=== PATIENT | male | born 1960 | race Caucasian/White ===

== ENCOUNTER 2022-08-29 09:08 | Emergency (ER) | payer OTHER, SELFPAY ==
[2022-08-29] VITALS (14 sets, daily range): BP systolic 108–135; BP diastolic 71–94; PULSE 67–140; RESP 15–24; TEMP 36.1; O2SAT 97–100; BMI 24.7
--- NOTE | 2022-08-29 09:21 | DI.RAD.S_ITS ---
PROCEDURE: XR CHEST 1V INDICATIONS: chest pain TECHNIQUE: One view of the chest was acquired. COMPARISON: None. FINDINGS: Surgical changes and devices: None. Lungs and pleura: Lungs are clear. No pleural effusions or pneumothorax. Mediastinum: Mediastinal contours appear normal. Heart size is normal. Bones and chest wall: No suspicious bony lesions. Overlying soft tissues appear unremarkable. IMPRESSION: No acute cardiopulmonary process. Dictated by: Iván Mccord M.D. on 08/29/2022 at 9:46 Approved by: Iván Mccord M.D. on 08/29/2022 at 9:46
[2022-08-29 09:46] LABS: Prothrombin Time 11.3 SECONDS (10.1-12.7)
[2022-08-29 09:49] LABS: PTT Partial Thromboplastin Tim 32 SECONDS (26-36)
[2022-08-29 09:52] LABS: Alanine Aminotransferase 26 IU/L (<50); Albumin 4.9 g/dL (3.5-5.0); Albumin Globulin Ratio 1.3 (1.0-2.8); Alkaline Phosphatase 64 U/L (38-126); Aspartate Aminotransferase 33 IU/L (17-59); BUN Creatinine Ratio 20.5 (6-22); Bilirubin Total 1.3 mg/dL (0.2-1.3); Blood Urea Nitrogen 17 mg/dL (9-20); Calcium 9.3 mg/dL (8.4-10.2); Carbon Dioxide 29 mmol/L (22-32); Chloride 102 mmol/L (98-107); Creatine Kinase 135 U/L (55-170); Estimated Glomerular Filt Rate > 60 mL/min (>60); Globulin 3.7 g/dL (1.7-4.1); Glucose 106 mg/dL (80-110); HEMOLYSIS 24 (0-50); Lipase 154 U/L (23-300); Magnesium 2.1 mg/dL (1.6-2.3); Potassium 4.3 mmol/L (3.4-5.1); Sodium 138 mmol/L (137-145); Total Protein 8.6 g/dL (6.3-8.2)
--- NOTE | 2022-08-29 09:56 | ED_ITS ---
HPI - Arrhythmia/Palpitations General Chief Complaint: Arrhythmia/Palpitations Stated Complaint: tachycardia, Dr sent Time Seen by Provider: 08/29/22 09:36 Source: patient Mode of arrival: Ambulatory Limitations: no limitations History of Present Illness HPI narrative: Patient is a 62-year-old male. Has a history of atrial fibrillation. Had an ablation done about 9 years ago. Has never had any issues since then. He states that on Sunday morning he started to feel like his heart was beating fast. He did have some exercise intolerance but no chest pain or shortness of breath. No lightheadedness. He stated that he contacted his primary doctor who told him to come to the emergency department. He is not currently on any beta- melissa nor anticoagulation. Related Data Previous Rx's Medication Instructions Recorded metoprolol succinate 25 mg 25 mg PO DAILY #30 tabs 08/29/22 tablet,extended release 24 hr rivaroxaban 20 mg tablet (Xarelto) 20 mg PO QPM #30 tabs 08/29/22 Allergies Allergy/AdvReac Type Severity Reaction Status Date / Time No Known Drug Allergies Allergy Verified 08/29/22 09:21 Review of Systems Review of Systems ROS Unobtainable: All systems reviewed & are unremarkable except as noted in HPI and below Patient History Medical History Atrial fibrillation Social History Smoking Status: Unknown if ever smoked Smoking Status: Unknown if ever smoked alcohol intake frequency: holidays/special occasions only Substance Use Type: does not use Exam Initial Vital Signs Initial Vital Signs: Vital Signs Temperature 97.0 F L 08/29/22 09:16 Pulse Rate 137 H 08/29/22 09:16 Respiratory Rate 17 08/29/22 09:16 Blood Pressure 127/94 H 08/29/22 09:16 Pulse Oximetry 98 08/29/22 09:16 Oxygen Delivery Method Room Air 08/29/22 09:16 Const General: cooperative, comfortable and No ill appearing [facility] Head: normal to inspection and normocephalic Resp Effort & Inspection: normal respiratory effort Auscultation: clear to auscultation bilaterally Cardio Rate: tachycardic Rhythm: regular rhythm GI Inspection: normal to inspection Skin General: no rashes or lesions noted Neuro General: patient alert, patient awake and moves all extremities Extrem General: capillary refill normal Course Orders Ordered: ED Orders 08/29/22 09:21 XR chest 1V Stat 08/29/22 09:25 Complete Blood Count AUTO DIFF Stat Comprehensive Metabolic Panel Stat Lipase Stat Magnesium Stat PTT Partial Thromboplastin [place] Stat Prothrombin Time INR Stat Troponin & CK Cardiac Panel Stat 08/29/22 09:34 EKG-12 Lead Stat 08/29/22 10:58 EKG-12 Lead Routine Discontinued Medications Aspirin (Aspirin 81 Mg Chew Tab) 324 mg PO NOW ONE Stop: 08/29/22 09:22 Last Admin: 08/29/22 12:13 Dose: Not Given Documented By: ANTHONY Diltiazem HCl (Diltiazem 5 Mg/Ml Sdv) 10 mg IV NOW ONE Stop: 08/29/22 10:29 Last Admin: 08/29/22 10:35 Dose: 10 mg Documented By: ANTHONY DILTIAZEM (Diltiazem 125 Mg/125 Ml-D5w) 125 mg in 125 mls @ 5 mls/hr IV TITRATE SIERRA; Protocol Last Titration: 08/29/22 12:13 Dose: 0 mg/hr, 0 mls/hr Documented By: Titration: 08/29/22 11:26 Dose: 0 mg/hr, 0 mls/hr Documented By: Admin: 08/29/22 10:36 Dose: 5 mg/hr, 5 mls/hr Documented By: ANTHONY Metoprolol Succinate (Metoprolol Er 25 Mg Tablet) 25 mg PO NOW ONE Stop: 08/29/22 11:03 Last Admin: 08/29/22 11:06 Dose: 25 mg Documented By: ANTHONY Vital Signs Vital signs: Vital Signs - 8 hr 08/29/22 11:06 08/29/22 10:00 08/29/22 10:00 Pulse Rate 68 134 H Respiratory Rate 23 Blood Pressure 108/75 127/92 H Pulse Oximetry 97 08/29/22 10:30 08/29/22 10:30 08/29/22 10:36 Pulse Rate 135 H Respiratory Rate 20 Blood Pressure 135/79 133/84 Pulse Oximetry 98 08/29/22 10:36 08/29/22 10:47 08/29/22 10:47 Pulse Rate 135 H 88 Respiratory Rate 15 21 Blood Pressure 115/77 Pulse Oximetry 98 98 08/29/22 11:00 08/29/22 11:00 08/29/22 11:25 Pulse Rate 71 Respiratory Rate 20 Blood Pressure 108/75 114/76 Pulse Oximetry 98 08/29/22 11:25 08/29/22 11:30 08/29/22 11:30 Pulse Rate 71 82 Respiratory Rate 21 17 Blood Pressure 118/71 Pulse Oximetry 98 98 08/29/22 11:52 08/29/22 11:52 08/29/22 12:00 Pulse Rate 68 Respiratory Rate 20 Blood Pressure 109/72 110/76 Pulse Oximetry 98 08/29/22 12:00 08/29/22 12:09 Pulse Rate 67 67 Respiratory Rate 20 Blood Pressure 110/76 Pulse Oximetry 98 MDM - Arrhythmia/Palpitations Lab Data Attestation: I reviewed the patient's lab results. 08/29/22 09:25 08/29/22 09:25 Labs: Lab Results 08/29/22 08/29/22 08/29/22 Range/Units 09:25 09:25 09:25 WBC 4.5 (4.5-11.0) X10^3/uL RBC 5.38 (4.5-5.9) X10^6/uL Hgb 16.5 (13.5-17.5) g/dL Hct 48.3 (41-53) % MCV 89.7 (80-100) fL MCH 30.8 (26-34) PG MCHC 34.3 (30-36) % RDW 13.6 (11.6-14.8) % Plt Count 180 (150-400) X10^3/uL Neut % (Auto) 56.6 (50-75) % Lymph % (Auto) 30.4 (25-40) % [place] % (Auto) 9.7 (3-14) % Eos % (Auto) 2.3 (2-4) % Baso % (Auto) 1.0 (0-2) % Neut # (Auto) 2600 (3130-7619) /uL Lymph # (Auto) 1400 (8745-0342) /uL [place] # (Auto) 400 (0-900) /uL Eos # (Auto) 100 (0-450) /uL Baso # (Auto) 0 (0-100) /uL PT 11.3 (10.1-12.7) SECONDS INR 1.0 (0.9-1.3) APTT 32 (26-36) SECONDS Sodium 138 (137-145) mmol/L Potassium 4.3 (3.4-5.1) mmol/L Chloride 102 (98-107) mmol/L Carbon Dioxide 29 (22-32) mmol/L BUN 17 (9-20) mg/dL Creatinine 0.83 (0.66-1.25) mg/dL Estimated GFR > 60 (>60) mL/min BUN/Creatinine Ratio 20.5 (6-22) Glucose 106 (80-110) mg/dL Calcium 9.3 (8.4-10.2) mg/dL Magnesium 2.1 (1.6-2.3) mg/dL Total Bilirubin 1.3 (0.2-1.3) mg/dL AST 33 (17-59) IU/L ALT 26 (<50) IU/L Alkaline Phosphatase 64 (38-126) U/L Total Creatine Kinase 135 (55-170) U/L CK-MB (CK-2) 2.15 (<2.37) ng/mL CK-MB (CK-2) Rel Index 1.6 (1.5-5.0) % Troponin I < 0.012 (0.01-0.034) ng/mL Total Protein 8.6 H (6.3-8.2) g/dL Albumin 4.9 (3.5-5.0) g/dL Globulin 3.7 (1.7-4.1) g/dL Albumin/Globulin Ratio 1.3 (1.0-2.8) Lipase 154 (23-300) U/L Urine Dip Bedside Urine Glucose Negative Bedside Urine Bilirubin - Negative Bedside Urine Ketone - Negative Urine Specific [place] 1.010 Bedside Urine Occult Blood + Bedside Urine pH 6.0 Bedside Urine Protein - Negative Bedside Urine Urobilinogen - Negative Bedside Urine Nitrite - Negative Bedside Urine Leukocytes - Negative Esterase Imaging Data Chest x-ray: Radiologist's Impresson: PROCEDURE:? XR CHEST 1V ? INDICATIONS:? chest pain ? TECHNIQUE:? One view of the chest was acquired.? ? COMPARISON:? None. ? FINDINGS:? ? Surgical changes and devices:? None.? ? Lungs and pleura:? Lungs are clear.? No pleural effusions or pneumothorax.? ? Mediastinum:? Mediastinal contours appear normal.? Heart size is normal.? ? Bones and chest wall:? No suspicious bony lesions.? Overlying soft tissues appear unremarkable.? ? IMPRESSION:? No acute cardiopulmonary process. ECG Data Attestation: I personally reviewed and interpreted this ECG as follows: Interpretation: Atrial flutter Ventricular rate 136 Normal axis Normal QRS Normal QTC Nonspecific ST T wave changes MDM Narrative Medical decision making narrative: Patient's EKG is consistent with atrial flutter. Initially I had an extensive discussion with him regarding cardioversion here in the emergency department however patient has had symptoms for greater than 48 hours. We did discuss the risks of this and I feel that we should hold on any cardioversion for now. He was given diltiazem and this did improve his heart rate tremendously. He was still in atrial flutter but his heart rate was in the 70s. He was then given an oral metoprolol and eventually the Cardizem drip was stopped. He was observed for a longer period of time and he still remained rate controlled. Since the kesha bustamante is rate controlled and he lives out of the area the plan will be is to put him on metoprolol and also on Xarelto. He was informed that he did need to talk with his primary doctor about further evaluation and most likely seeing a python programmer with a needed cardioversion. Patient was given strict return precautions. He expressed understanding and agreement with plan. Discharge Plan Departure Patient Disposition: Home Clinical Impression: Atrial flutter Instructions: DI for Atrial Flutter Activity Restrictions/Additional Instructions: It is important that you follow-up with your primary doctor and also your python programmer. We are going to start you on 2 new medications. One of them is called metoprolol. This will help try to keep your heart rate low to try to prevent the rapid heart rate once again. You were given a dose here in the emergency department so your next dose of this medicine will be tomorrow. The 2nd medicines called Xarelto. This medication you can start this evening. This is a blood thinning medication. You will be on this until you follow-up with your primary doctor. Return to the emergency department for any new or worsening symptoms. Prescriptions: New Xarelto 20 mg tablet 20 mg PO QPM Qty: 30 0RF Rx Instructions: must administer with evening meal metoprolol succinate 25 mg tablet extended release 24 hr 25 mg PO DAILY Qty: 30 0RF Referrals: Miscellaneous,Doctor, MD [Primary Care Provider] - Stand Alone Forms: Patient Portal/API
[2022-08-29 10:03] LABS: Add Manual Diff / Slide Review NO; Basophils Absolute Auto 0 /uL (0-100); Eosinophils Absolute Auto 100 /uL (0-450); Eosinophils Percent Auto 2.3 % (2-4); Hematocrit 48.3 % (41-53); Hemoglobin 16.5 g/dL (13.5-17.5); Lymphocytes Absolute Auto 1400 /uL (1100-4500); Lymphocytes Percent Auto 30.4 % (25-40); Mean Corpuscular HGB Conc 34.3 % (30-36); Mean Corpuscular Hemoglobin 30.8 PG (26-34); Mean Corpuscular Volume 89.7 fL (80-100); Monocytes Absolute Auto 400 /uL (0-900); Monocytes Percent Auto 9.7 % (3-14); Neutrophils Absolute Auto 2600 /uL (1500-7000); Neutrophils Percent Auto 56.6 % (50-75); Platelet Count 180 X10^3/uL (150-400); Red Blood Cell Count 5.38 X10^6/uL (4.5-5.9); Red Cell Distribution Width 13.6 % (11.6-14.8); White Blood Cell Count 4.5 X10^3/uL (4.5-11.0)
[2022-08-29 10:04] LABS: Troponin I < 0.012 ng/mL (0.01-0.034)
[2022-08-29 10:07] LABS: CKMB % Relative Index 1.6 % (1.5-5.0); Creatine Kinase MB 2.15 ng/mL (<2.37)
[2022-08-29] MEDS: dilTIAZem 5 MG/ML SDV 10 MG IV (10:35)
[2022-08-29] MEDS: DILTIAZEM 125 MG/125 ML PIGGYBACK IV (10:36)
[2022-08-29] MEDS: METOPROLOL ER 25 MG TABLET PO (11:06)
== END 2022-08-29 12:15 | disposition home or self-care (01) ==
PROVIDERS: Emergency Provider Emergency Medicine
DX: I48.92 Unspecified atrial flutter (principal); Z79.01 Long term (current) use of anticoagulants; R07.9 Chest pain, unspecified
CPT/HCPCS: 36415; 71045; 80053; 81003; 82550; 82553; 83690; 83735; 84484; 85025; 85610; 85730; 93005; 96365; 96375; 99284

== ENCOUNTER 2023-11-11 11:09 | Emergency (ER) | payer MEDICARE, SELFPAY ==
[2023-11-11 11:13] VITALS: BP 135/77; PULSE 66; RESP 16; TEMP 36.8; O2SAT 98; BMI 24.3
--- NOTE | 2023-11-11 11:21 | EKG_ITS ---
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
[2023-11-11 11:25] VITALS: PULSE 66; RESP 22; O2SAT 99
[2023-11-11 11:30] VITALS: BP 119/74; PULSE 65; O2SAT 99
--- NOTE | 2023-11-11 11:39 | ED_ITS ---
HPI - Arrhythmia/Palpitations General Chief Complaint: Arrhythmia/Palpitations Stated Complaint: Afib Time Seen by Provider: 11/11/23 11:31 Source: patient Mode of arrival: Ambulatory History of Present Illness HPI narrative: Patient is a 63-year-old male. Is on Xarelto. History of atrial fibrillation. Has had multiple ablations in the past. Has been taking his medications. He states that overnight he woke up at about 0100 hours in the morning to use the restroom. He states he felt like his heart was skipping beats. He had no chest pain or lightheadedness or shortness of breath. When he woke up this morning he was continuing to have the symptoms. He used his home monitoring specialist which told him that he was in atrial fibrillation which brought him to the emergency department today. He states he was feeling the palpitations. Continues to have no chest pain or lightheadedness or shortness of breath. Related Data Previous Rx's Medication Instructions Recorded metoprolol succinate 25 mg 25 mg PO DAILY #30 tabs 08/29/22 tablet,extended release 24 hr rivaroxaban 20 mg tablet (Xarelto) 20 mg PO QPM #30 tabs 08/29/22 Allergies Allergy/AdvReac Type Severity Reaction Status Date / Time No Known Drug Allergies Allergy Verified 11/11/23 11:30 Review of Systems Review of Systems Narrative: See HPI Patient History Medical History Atrial fibrillation Social History Smoking Status: Unknown if ever smoked Smoking Status: Unknown if ever smoked alcohol intake frequency: holidays/special occasions only Substance Use Type: does not use Exam Initial Vital Signs Initial Vital Signs: Vital Signs Temperature 98.2 F 11/11/23 11:13 Pulse Rate 66 11/11/23 11:13 Respiratory Rate 16 11/11/23 11:13 Blood Pressure 135/77 11/11/23 11:13 Pulse Oximetry 98 11/11/23 11:13 Oxygen Delivery Method Room Air 11/11/23 11:13 Const General: cooperative, comfortable and No ill appearing HENMT Head: normal to inspection and normocephalic Resp Effort & Inspection: normal respiratory effort Auscultation: clear to auscultation bilaterally Cardio Rate: regular rate Rhythm: regular rhythm GI Inspection: normal to inspection Neuro General: patient alert, patient awake, patient oriented x3 and moves all extremities Course Orders Ordered: ED Orders 11/11/23 11:23 Complete Blood Count AUTO DIFF Stat Comprehensive Metabolic Panel Stat Magnesium Stat 11/11/23 11:40 EKG-12 Lead Stat Vital Signs Vital signs: Vital Signs - 8 hr 11/11/23 11:13 11/11/23 11:25 11/11/23 11:30 Temperature 98.2 F Pulse Rate 66 66 65 Respiratory Rate 16 22 Blood Pressure 135/77 Pulse Oximetry 98 99 99 Oxygen Delivery Method Room Air 11/11/23 11:30 11/11/23 12:00 11/11/23 12:00 Temperature Pulse Rate 68 Respiratory Rate 21 Blood Pressure 119/74 123/77 Pulse Oximetry 98 Oxygen Delivery Method 11/11/23 12:30 11/11/23 12:30 Temperature Pulse Rate 61 Respiratory Rate 19 Blood Pressure 109/67 Pulse Oximetry 98 Oxygen Delivery Method MDM - Arrhythmia/Palpitations Medical Records Attestation: I reviewed the patient's medical records. Lab Data Attestation: I reviewed the patient's lab results. 11/11/23 11:23 11/11/23 11:23 Labs: Lab Results 11/11/23 Range/Units 11:23 WBC 6.9 (4.5-11.0) X10^3/uL RBC 4.58 (4.5-5.9) X10^6/uL Hgb 13.9 (13.5-17.5) g/dL Hct 41.4 (41-53) % MCV 90.3 (80-100) fL MCH 30.3 (26-34) PG MCHC 33.5 (30-36) % RDW 13.0 (11.6-14.8) % Plt Count 180 (150-400) X10^3/uL Neut % (Auto) 70.2 (50-75) % Lymph % (Auto) 19.8 L (25-40) % [place] % (Auto) 8.7 (3-14) % Eos % (Auto) 1.0 L (2-4) % Baso % (Auto) 0.3 (0-2) % Neut # (Auto) 4900 (6154-5068) /uL Lymph # (Auto) 1400 (6714-0424) /uL [place] # (Auto) 600 (0-900) /uL Eos # (Auto) 100 (0-450) /uL Baso # (Auto) 0 (0-100) /uL Sodium 138 (137-145) mmol/L Potassium 4.0 (3.4-5.1) mmol/L Chloride 107 (98-107) mmol/L Carbon Dioxide 28 (22-32) mmol/L BUN 17 (9-20) mg/dL Creatinine 0.86 (0.66-1.25) mg/dL Estimated GFR > 60 (>60) mL/min BUN/Creatinine Ratio 19.8 (6-22) Glucose 95 (80-110) mg/dL Calcium 8.8 (8.4-10.2) mg/dL Magnesium 2.0 (1.6-2.3) mg/dL Total Bilirubin 1.2 (0.2-1.3) mg/dL AST 46 (17-59) IU/L ALT 52 H (<50) IU/L Alkaline Phosphatase 71 (38-126) U/L Total Protein 7.6 (6.3-8.2) g/dL Albumin 4.3 (3.5-5.0) g/dL Globulin 3.3 (1.7-4.1) g/dL Albumin/Globulin Ratio 1.3 (1.0-2.8) ECG Data Attestation: I personally reviewed and interpreted this ECG as follows: Interpretation: Sinus rhythm Ventricular rate is 68 Normal axis Normal QRS Frequent PACs No ST T wave changes MDM Narrative Medical decision making narrative: Patient is in sinus rhythm with frequent PACs which is what he was feeling here in the ER. We discussed the possibility that this is what his monitor at home was reading. His electrolytes and blood counts kidney function are all unremarkable. Will discharge patient home. Will hold on any changes to his medications. We discussed the rhythms today and what he should return for. He expressed understanding and agreement with plan. Discharge Plan Departure Patient Disposition: Home Clinical Impression: PAC (premature atrial contraction) Instructions: Arrhythmias Activity Restrictions/Additional Instructions: Recommend that you continue to take all of your medications as directed. Contact your primary care provider and also your senior sales associate for a follow-up. Return to the emergency department for new symptoms. Prescriptions: No Action Xarelto 20 mg tablet 20 mg PO QPM Qty: 30 0RF Rx Instructions: must administer with evening meal metoprolol succinate 25 mg tablet extended release 24 hr 25 mg PO DAILY Qty: 30 0RF Referrals: Miscellaneous,Doctor, MD [Primary Care Provider] - Stand Alone Forms: Patient Portal/API
[2023-11-11 12:00] VITALS: BP 123/77; PULSE 68; RESP 21; O2SAT 98
[2023-11-11 12:02] LABS: Add Manual Diff / Slide Review NO; Basophils Absolute Auto 0 /uL (0-100); Basophils Percent Auto 0.3 % (0-2); Eosinophils Absolute Auto 100 /uL (0-450); Hematocrit 41.4 % (41-53); Hemoglobin 13.9 g/dL (13.5-17.5); Lymphocytes Absolute Auto 1400 /uL (1100-4500); Lymphocytes Percent Auto 19.8 % (25-40); Mean Corpuscular HGB Conc 33.5 % (30-36); Mean Corpuscular Hemoglobin 30.3 PG (26-34); Mean Corpuscular Volume 90.3 fL (80-100); Monocytes Absolute Auto 600 /uL (0-900); Monocytes Percent Auto 8.7 % (3-14); Neutrophils Absolute Auto 4900 /uL (1500-7000); Neutrophils Percent Auto 70.2 % (50-75); Platelet Count 180 X10^3/uL (150-400); Red Blood Cell Count 4.58 X10^6/uL (4.5-5.9); White Blood Cell Count 6.9 X10^3/uL (4.5-11.0)
[2023-11-11 12:17] LABS: Alanine Aminotransferase 52 IU/L (<50); Albumin 4.3 g/dL (3.5-5.0); Albumin Globulin Ratio 1.3 (1.0-2.8); Alkaline Phosphatase 71 U/L (38-126); Aspartate Aminotransferase 46 IU/L (17-59); BUN Creatinine Ratio 19.8 (6-22); Bilirubin Total 1.2 mg/dL (0.2-1.3); Blood Urea Nitrogen 17 mg/dL (9-20); Calcium 8.8 mg/dL (8.4-10.2); Carbon Dioxide 28 mmol/L (22-32); Chloride 107 mmol/L (98-107); Estimated Glomerular Filt Rate > 60 mL/min (>60); Globulin 3.3 g/dL (1.7-4.1); Glucose 95 mg/dL (80-110); HEMOLYSIS < 15 (0-50); Sodium 138 mmol/L (137-145); Total Protein 7.6 g/dL (6.3-8.2)
[2023-11-11 12:30] VITALS: BP 109/67; PULSE 61; RESP 19; O2SAT 98
--- NOTE | 2023-11-11 12:41 | PC.NURSE ---
Pt states he awoke feeling his heart was in afib pt states he has been cardioverted before. 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 Pt denies CP, back pain, or SOB. Respriations regular and unlabored
[2023-11-11 12:48] VITALS: TEMP 36.1
== END 2023-11-11 12:49 | disposition home or self-care (01) ==
PROVIDERS: Emergency Provider Emergency Medicine
DX: I49.1 Atrial premature depolarization (principal); Z79.01 Long term (current) use of anticoagulants
CPT/HCPCS: 36415; 80053; 83735; 85025; 93005; 93010; 99283; 99284